=== PATIENT | male | born 1965 | race Caucasian/White ===

== ENCOUNTER 2023-12-28 20:52 | Emergency (ER) | payer OTHER, SELFPAY ==
[2023-12-28 20:56] VITALS: BP 109/76; BMI 22.2
--- NOTE | 2023-12-28 21:10 | ED.GENMED ---
History of Present Illness
General
Chief Complaint: Swallowing Problem
Source: patient
Exam Limitations: none
Time Seen by Provider: 12/28/23 21:03
Travel History
Have you had any contact with someone who has COVID-19?: No
Do you have any symptoms of coronavirus? Fever > 100 degrees, chills, cough, shortness of breath, sore throat, loss of taste or smell, muscle aches, or headache?: No
History of Present Illness
History of Present Illness:
This is a 58 year old male that comes in from the [facility] with c/o chocking on his dinner. States that he had chicken with rice and he started to gag. States that he is tolerating water fine. States that he did vomit and he felt lightheaded. Denies
any fever, chills, chest pain, SOB, diarrhea, abd pain, headache, dizziness, urinary burning.
Past History
Past History
ED Past Medical History: COPD, Psychiatric (Schizophrenia) and Other (Crohn's, )
ED Past Surgical History: None
Social History
Tobacco: Smoker
Alcohol: Occasional
Personal: Single
Living: senior living
Review of Systems
Review of Systems
All Other Systems: ROS reviewed and negative except as documented in HPI and ROS
Constitutional: Reports no symptoms; Denies fever or chills
EENT: Reports no symptoms
Respiratory: Denies cough or trouble breathing
Cardiac: Reports no symptoms; Denies chest pain
ABD/GI: Reports vomiting; Denies abdominal pain, nausea or diarrhea
: Reports no symptoms; Denies dysuria, frequency or urgency
Musculoskeletal: Reports no symptoms
Skin: Reports no symptoms
Neurological: Reports other (Little lightheaded); Denies dizzy or headache
Psychiatric: Reports no symptoms
Phy Exam
General Physical Exam
General Presentation: well appearing and no apparent distress
General age: appears stated age
General Skin: warm and dry
General Habitus: normal
General Mental: alert
General Hydration: appears well hydrated (Drinking water at this time. )
ENT Exam
ENT Exam: TM's normal, pharynx normal and neck supple
Eye Exam
Eye Exam: EOMI
Cardiovascular Exam
Cardiovascular Exam: regular rate/rhythm, no edema, no murmur and normal peripheral pulses
Pulmonary Exam
Pulmonary Exam: lungs clear (patient 100% on room air), no respiratory distress, no rales, chest non tender, no crackles, no rhonchi, no wheezing and no cough
Gastrointestinal Exam
Gastrointestinal Exam: normal bowel sounds, non tender, soft, no organomegaly, no pulsatile mass and non distended
Musculoskeletal Exam
Musculoskeletal Exam: full ROM and no edema
Skin Exam
Skin Exam: normal color, warm/dry, no rash and no petechia
Psychiatric Exam
Psychiatric Exam: normal mood/affect
Course
Orders/Labs/Results
Orders:
Orders
12/28/23 21:10
CR Chest - 2 Views Urgent
Comment:
Reason For Exam: chocking on dinner
12/28/23 22:23
CT Chest W/o Iv Contrast Urgent
Comment:
Reason For Exam: gaging after eating. Right mid chest concern
Vital Signs
Initial and Last Documented VS:
Initial Vital Signs
Temp Pulse Resp BP Pulse Ox
98.3 F 81 16 109/76 99
12/28/23 20:56 12/28/23 20:56 12/28/23 20:56 12/28/23 20:56 12/28/23 20:56
Last Documented Vital Signs
Temp Pulse Resp BP Pulse Ox
98.3 F 74 18 144/85 100
12/28/23 22:59 12/28/23 22:59 12/28/23 22:59 12/28/23 22:59 12/28/23 22:59
Travel Rn Or consulted with Physician
Travel Rn Or consulted with physician?: Yes
Name of Physician Consulted: Dr Krishnamurthy
MDM/Problems Addressed
Differential Diagnosis Includes:
Aspiration
MDM/Problems Addressed:
This is a 58 year old male that was chocking on his dinner. Was brought in for clearance
Patient is tolerating water at this time. Will get chest x-ray. If this is normal will discharge patient back to the [facility].
Back into see patient. Explained that his CT shows right upper lobe Infection/aspiration. Patient will be started on Augmentin. Explained to patient that his Left thyroid lobe has multiple nodules extending intothe Mediastinum with rightward
deviation/narrowing of the trachea and esophagus. Patient will need out patent US and possible MRi of the neck. Patient to return with any concerns.
Chronic conditions affecting care:
NA
Acute Exacerbation and/or Progression of Chronic Illness:
NA
*Radiology
Radiology exam reviewed: preliminary read by ED provider (Chest- Right sided possible Pneumonia ), radiology read reviewed (CT chest night hawk-Patchy centrilobular opacities and focal consolidation in the right upper lobe suggestive of
infection/aspiration. No pleural effusions. There is no thoracic aortic aneurysm. Enlarged left thyroid lobe with multiple nodules not well evaluated on this examination extending into) and other (CT cont= the mediastinum with rightward
deviation/narrowing of the trachea and esophagus. )
*Pulse Oximetry
Patient hypoxic: no
*EKG
Interpreted by ED Provider?: NA
Rate: EKG- N/A
*Force Dispatcher Interpretation
Rate: Force Dispatcher- N/A
*Critical Care Note
Total Time (30-74mins, 75-104mins- exclusive of procedures): Not Applicable
ED Attending Note
-
Portions of this chart may have been created with voice recognition software.� Occasional wrong word or��sound alike� substitutions may have occurred due to the inherent limitations of voice recognition software.
Discharge Plan
Departure
Patient Disposition: [facility]
Date of Disposition: 12/29/23
Time of Disposition: 00:14
Patient with high blood pressure during this ER visit?: No
Condition: Good
Covid-19: Not Applicable
Discharge Problem:
Possible right lung infection/aspiration
Instructions: Aspiration Pneumonia (DC)
Prescriptions:
New
amoxicillin-pot clavulanate 875-125 mg tablet
1 tab PO BID Qty: 19 0RF
Referrals:
[facility] [Family Provider] - Follow up in 2-3 days
Activity Restrictions/Additional Instructions:
As discussed, your chest CT shows that there is possible infection/aspiration in the right upper lobe. You also have MULTIPLE NODULES ON THE LEFT THYROID THAT EXTENDS INTO THE MEDIASTINUM WITH RIGHTWARD DEVIATION/NARROWING OF THE TRACHEA AND
ESOPHAGUS. YOU WILL NEED FURTHER EVALUATION BY ULTRASOUND AND POSSIBLE MRI. You have been given a prescription for an antibiotic. Please take as directed. IF YOU HAVE SHORTNESS OF BREATH, FEVER, OR YOU HAVE ANY OTHER CONCERNS PLEASE RETURN TO THE
EMERGENCY ROOM.
Interventions
Interventions:
*Risk Screen - Suicide Last Done: 12/28/23 20:56
*General Assessment Last Done: 12/28/23 20:56
*Neglect/Abuse Screening Last Done: 12/28/23 20:56
*ED COVID-19 Vaccine History Last Done: 12/28/23 21:03
ED-EENT Assessment Last Done: 12/28/23 21:03
SH-Guuawc-Mvhwgyjemm Assessment Last Done: 12/28/23 21:03
ED- Pulmonary Assessment Last Done: 12/28/23 21:03
ED- Neurological Assessment Last Done: 12/28/23 21:03
ED Swallowing Screen Last Done: 12/28/23 21:03
Discharge Date and Time
Print Language: WOLOF
[2023-12-28 22:59] VITALS: BP 144/85
[2023-12-29] MEDS: AUGMENTIN 875 MG/125 MG 1 TABLET PO (00:24)
[2023-12-29 00:35] VITALS: BP 114/66
== END 2023-12-29 00:37 ==
LOC: EMR 20:52
PROVIDERS: EMERGENCY PHYSICIAN Emergency Medicine
DX: R09.89 Other specified symptoms and signs involving the circulatory and respiratory systems (principal); R42 Dizziness and giddiness; R11.10 Vomiting, unspecified; K22.89 Other specified disease of esophagus; J39.8 Other specified diseases of upper respiratory tract; F20.9 Schizophrenia, unspecified; E04.2 Nontoxic multinodular goiter; K50.90 Crohn's disease, unspecified, without complications; J44.9 Chronic obstructive pulmonary disease, unspecified; F17.200 Nicotine dependence, unspecified, uncomplicated
CPT/HCPCS: 99284; 71046; 71250